=== PATIENT | female | born 1990 | race Caucasian/White ===

== ENCOUNTER 2022-01-26 05:32 | Emergency (ER) | payer SELFPAY ==
[~2022-01-26] VITALS: Ht 157.5 cm; Wt 49.0 kg
--- NOTE | 2022-01-26 06:00 | NUR ---
Patient able to walk with steady gait, a/ox4, NAD noted.
[2022-01-26] MEDS ORDERED: ACETAMINOPHEN ES 500 MG TABLET ONE (06:53)
[2022-01-26] MEDS ORDERED: IV NORMAL SALINE 1000 ML BAG IV ONE (07:00)
[2022-01-26] MEDS ORDERED: ACETAMINOPHEN ES 500 MG TABLET PO ONE (07:00)
[2022-01-26 07:09] LABS: HEMATOCRIT 35.1 % (31.2-41.9); MEAN CORPUSCULAR HEMOGLOBIN 28.7 uug (24.7-32.8); MEAN CORPUSCULAR VOLUME 84.8 fL (75.5-95.3); PLATELET COUNT (AUTO) 201 K/uL (179-408)
[2022-01-26 07:43] LABS: ALANINE AMINOTRANSFERASE 19 U/L (14-59); ALKALINE PHOSPHATASE 54 U/L (50-136); ASPARTATE AMINOTRANSFERASE 15 U/L (15-37); BILIRUBIN,DIRECT < 0.1 mg/dL (0.0-0.2); BILIRUBIN,TOTAL 0.1 mg/dL (0.2-1.0); CARBON DIOXIDE 32 mmol/L (21-32); CHLORIDE 103 mmol/L (98-107); CREATININE 0.9 mg/dL (0.6-1.3); GLUCOSE 87 mg/dL (74-106); POTASSIUM 4.3 mmol/L (3.5-5.1); TOTAL PROTEIN, SERUM 6.7 g/dL (6.4-8.2); UREA NITROGEN, BLOOD 16 mg/dL (7-18)
[2022-01-26 07:51] LABS: ETHANOL < 3 MG/DL (0-0)
[2022-01-26] MEDS ORDERED: CYCL5TAB PO (08:04)
[2022-01-26] MEDS ORDERED: METH4TAB3 PO (08:04)
--- NOTE | 2022-01-26 08:21 | NUR ---
PT WAS D/C'd TO HOME. D/C INSTRUCTIONS GIVEN TO THE PT.
[2022-01-26 08:22] VITALS: BP 145/78
[2022-01-26 12:06] LABS: LIPASE 107 U/L (73-393)
== END 2022-01-26 08:23 | disposition home or self-care (01) ==
LOC: ER 05:39
DX: M54.42 Lumbago with sciatica, left side (principal); S32.059D Unspecified fracture of fifth lumbar vertebra, subsequent encounter for fracture with routine healing; V49.9XXD Car occupant (driver) (passenger) injured in unspecified traffic accident, subsequent encounter; N28.1 Cyst of kidney, acquired; Z88.6 Allergy status to analgesic agent
CPT/HCPCS: 36415; 83690; 85025; A4663; A9150; G0480; J7040